=== PATIENT | male | born 1980 ===

== ENCOUNTER 2019-04-01 12:48 | Emergency (ER) | payer SELFPAY ==
--- OUTSIDE RECORDS SUMMARY | 2019-04-01 12:56 | XMS REPORT | Summary of Care ---
:1980 Author Organization [facility] Address [address] [place] [address] Care Team Providers Name Role Phone Michelle Ramos MD Primary Care Provider Reason for Referral Consultation (Routine) Status Reason Specialty Diagnoses / Referred By Referred To Procedures Contact Contact Open Specialty Dermatology Diagnoses Basal cell carcinoma (BCC) of skin of nose Burt Baum Farah, Ramsay Services MD S, MD Required [address] [facility] [address]nd [address], [address] [place] [address] Phone: Fax: Email: [phone] [email or web address] Consultation (STAT) Status Reason Specialty Diagnoses / Referred By Referred To Procedures Contact Contact Open Specialty Otolaryngology Diagnoses Basal cell carcinoma (BCC) of skin of nose Burt Baum, Celine Recinos MD, MD Required [address], [address] [address] [address] Phone: [place], [place] [phone] Fax: Email: [email or web address] Reason for Visit Reason Comments New Patient Consultation (Routine) Status Reason Specialty Diagnoses / Referred By Referred To Procedures Contact Contact Authorized Specialty Dermatology Diagnoses Basal cell carcinoma (BCC) of dorsum of nose Sarika Hogan Ramsay S, Services Prashant K, MD MD Required [address], [address] [place] [address] [place], [place] Phone: [phone] Phone: Email: Email: [email or web address] Encounter Details Date Type Department Care Team Description 02/13/2019 Office Visit [facility] Dermatology Jamin Hogan MD [address] [facility] [place] [address] [phone] Basal cell carcinoma at [facility], Burt Ngo MD [address], [address] [place] [phone] (BCC) of skin [facility] nose (Primary Dx) [address], [address] [place] [phone] Allergies Active Allergy Reactions Severity Noted Date Comments Amoxicillin Anaphylaxis High 05/12/2016 Penicillins 11/22/2015 documented as of this encounter (statuses as of 02/13/2019) Medications Medication Sig Dispensed Refills Start Date End Date Status lisinopril Take 10 mg by 1 05/01/2016 Active (PRINIVIL,ZESTRIL) mouth daily 10 MG tablet ibuprofen Take 200 mg by 0 Active (ADVIL,MOTRIN) 200 mouth every 6 MG (six) hours as tabletIndications: needed for Pain Mild to Moderate (pt states Pain 1000mg-1200mg at a time)Indications: Mild to Moderate Pain acetaminophen Take 500 mg by 0 Active (TYLENOL) 500 MG mouth every 6 tablet (six) hours as needed for Pain amLODIPine Besylate Take 10 mg by 0 04/21/2018 Active 10 MG Oral Tablet mouth daily (NORVASC) Benazepril-hydroCHLO TAKE TWO TABLETS 0 07/05/2018 Active ROthiazide 20-12.5 BY MOUTH EVERY MG Oral Tablet MORNING (LOTENSIN HCT) DISCONTINUE ENALAPRIL Doxycycline Take 100 mg by 0 12/08/2018 Active Monohydrate 100 MG mouth Two Times Oral Capsule Daily (MONODOX) Fluorouracil 5 % Apply to lesion on 40 g 1 02/13/2019 02/12/2020 Active External Cream genitals as well (EFUDEX) as to lesion in right groin bid documented as of this encounter (statuses as of 02/13/2019) Active Problems Problem Noted Date Morbid obesity due to excess calories 11/25/2015 Asthma documented as of this encounter (statuses as of 02/13/2019) Social History Tobacco Use Types Packs/Day Years Used Date Never Smoker 0 Smokeless Tobacco: Current User Alcohol Use Drinks/Week oz/Week Comments Yes 2-3 x a week, 3-6 drinks/time Sex Assigned at Date Recorded Not on file Job Start Date Occupation Industry Not on file Not on file Not on file Travel History Travel Start Travel End No recent travel history available. documented as of this encounter Last Filed Vital Signs Vital Sign Reading Time Taken Comments Blood Pressure - - Pulse - - Temperature 36.7 02/13/2019 9:11 AM EST C (98 F) Respiratory Rate - - Oxygen Saturation - - Inhaled Oxygen Concentration - - Weight 164.7 kg (363 lb) 02/13/2019 9:11 AM EST Height 182.9 cm (6' 0.01") 02/13/2019 9:11 AM EST Body Mass Index 49.22 02/13/2019 9:11 AM EST documented in this encounter Progress Notes Neil Santacruz MD - 02/13/2019 9:15 AM EST REASON FOR VISIT: The patient is here as a new patient for biopsy confirmed basal cell carcinoma. HISTORY OF PRESENTING ILLNESS: Yayo Garcia is a 38 y.o. year old male who presents with biopsy proven basal cell carcinoma. He has a past medical history of umbilical hernia, repaired in 2017, low back pain, hypertension, degenerative disk disease, asthma , arthritis, and morbid obesity, coming in post excision of the basal cell carcinoma at the dorsal nose, however, with some cancer remaining. He states that he has had this lesion for the past 1.5-2 years however, it has not bothered him significantly. He assumed it was a wart. States there was some itching. Denies erythema, bleeding, or flaking of tissue debris from site. Chief Complaints: Basal cell carcinoma Condyloma Location Right dorsum nose 1 lesion seen on distal shaft of penis, and similar lesion seen on right side of groin Duration 1.5-2 years Months previous Modifying Factors N/A N/A Signs & Symptoms Previously goldstein white lesion 0.6 x 0.6 x 0.1 Wartlike appearance, no change in color Previous Treatments Excision of the nodule with 0.4 cm depth None. Patient's medications, allergies, past medical, surgical, social and family histories were reviewed and updated as appropriate. Past surgical history includes finger surgery , wisdom teeth extraction and umbilical hernia repair 5 years ago with reduction in 2017. His family history includes cancer in his maternal grandmother and paternal grandmother, diabetes inhis mother, hyperlipidemia in his mother, hypertension in his father and mother. As per social history, he states that he has never smoked, he uses smokeless tobacco. He reports current alcohol use. He states that he does not use drugs. Current medication list includes amlodipine, benazepril, HCTZ, doxycyline, ibuprofen, acetaminophen, and lisinopril. Biopsy Report: Surgical Pathology Report Specimen(s) Received A: Nose lesion Clinical Diagnosis and History ICD 10 D48.5 Excision, stitch inferior at corner. Diagnosis SKIN, NOSE BASAL CELL CARCINOMA, FOCALLY EXTENDING TO 3:00 LATERAL AND DEEP MARGIN. Gross Description Specimen received in formalin labeled "nose lesion" is a 1.3 x 0.8 cm ellipse of pink-patterson skin excised to a maximum depth of 0.4 cm. There is a stitch on the longitudinal end indicating inferior corner. The stitch will be redesignated 12:00. Located centrally on the skin surface is a 0.6 x 0.6 x 0.1 cm circumscribed brunner-white nodular lesion. The lesion is located 0.1 cm from the nearest transverse margin. The 3:00 transverse margin is inked blue and the remaining margin black. The specimen is serially sectioned transversely and the 12 and 6:00 ends are cruciated. Sections are submitted for microscopic examination as designated: cassette 1 12:00 cruciate margin; cassette 2 transverse sections to include 3:00, 9:00 and deep margin; and cassette 3 6:00 cruciate margin. (3 blocks) arcadio rff/duran Techinical component processed at [facility], Histopathology, [address] [place] [address]. Diagnosis and reporting at [facility], [address] [place] [address] Reported: 01/02/2019 15:23 REVIEW OF SYSTEMS: Review of Systems Constitutional: Negative for chills, fever, malaise/fatigue and weight loss. HENT: Negative for hearing loss and tinnitus. Eyes: Negative for blurred vision, double vision and pain. Respiratory: Negative for cough and hemoptysis. Cardiovascular: Negative for chest pain, palpitations and orthopnea. Gastrointestinal: Negative for heartburn, nausea and vomiting. Genitourinary: Negative for dysuria and urgency. Musculoskeletal: Negative for myalgias and neck pain. Skin: Positive for itching. Neurological: Negative for dizziness, sensory change, focal weakness and headaches. PAST MEDICAL HISTORY: Past Medical History: Diagnosis Date Allergy, unspecified not elsewhere classified seasonal Arthritis Asthma DDD (degenerative disc disease), lumbosacral 2017 Hypertension Low back pain Umbilical hernia PAST SURGICAL HISTORY: Past Surgical History: Procedure Laterality Date FINGER SURGERY Ring finger left hand RI REPAIR UMBILICAL KIM,5+Y/O,REDUC N/A 06/24/2016 Procedure: OPEN UMBILICAL HERNIA REPAIR ; Surgeon: Nato Smith MD; Location: OR ; Service:General; Laterality: N/A; WISDOM TOOTH EXTRACTION ALLERGIES: Allergies Allergen Reactions Amoxil [Amoxicillin] Anaphylaxis Penicillins MEDICATIONS: Current Outpatient Medications on File Prior to Visit Medication Sig Dispense Refill amLODIPine Besylate 10 MG Oral Tablet (NORVASC) Take 10 mg by mouth daily Benazepril-hydroCHLOROthiazide 20-12.5 MG Oral Tablet (LOTENSIN HCT) TAKE TWO TABLETS BY MOUTH EVERY MORNING DISCONTINUE ENALAPRIL ibuprofen (ADVIL,MOTRIN) 200 MG tablet Take 200 mg by mouth every 6 (six ) hours as needed for Pain (pt states 1000mg-1200mg at a time)Indications: Mild to Moderate Pain acetaminophen (TYLENOL) 500 MG tablet Take 500 mg by mouth every 6 (six) hours as needed forPain Doxycycline Monohydrate 100 MG Oral Capsule (MONODOX) Take 100 mg by mouth Two Times Daily lisinopril (PRINIVIL,ZESTRIL) 10 MG tablet Take 10 mg by mouth daily 1 No current facility-administered medications on file prior to visit. FAMILY HISTORY: Melanoma: no Skin Cancer: No PHYSICAL EXAMINATION: Physical Exam Constitutional: Appearance: Normal appearance. He is obese. He is not toxic-appearing or diaphoretic. HENT: Head: Normocephalic and atraumatic. Right Ear: There is no impacted cerumen. Left Ear: There is no impacted cerumen. Mouth/Throat: Mouth: Mucous membranes are dry. Eyes: Extraocular Movements: Extraocular movements intact. Pupils: Pupils are equal, round, and reactive to light. Cardiovascular: Rate and Rhythm: Normal rate and regular rhythm. Heart sounds: No murmur. No friction rub. No gallop. Pulmonary: Effort: Pulmonary effort is normal. Breath sounds: Normal breath sounds. No stridor. No rhonchi. Abdominal: General: Bowel sounds are normal. There is distension. Palpations: Abdomen is soft. Tenderness: There is no abdominal tenderness. Genitourinary: Comments: Has a condyloma wart on the distal penile shaft. Similar in the right side of his groin. Musculoskeletal: General: No deformity or signs of injury. Skin: Findings: Lesion present. Comments: 1 cm scar located on anterior right side of the nose, post excision. Neurological: General: No focal deficit present. Mental Status: He is alert and oriented to person, place, and time. Psychiatric: Mood and Affect: Mood normal. Behavior: Behavior normal. Neck- Exam of scalp, hair, external ears, conjunctiva, eyelids, lips, face and neck. Normal except as noted; ASSESSMENT/PLAN Yayo Garcia is a 38 y.o. year old male who presents with biopsy proven basal cell carcinoma. He has a past medical history of umbilical hernia, repaired in 2017, low back pain, hypertension, degenerative disk disease, asthma , arthritis, and morbid obesity, coming in post excision of the basal cell carcinoma at the dorsal nose, however, with some cancer remaining. He states that he has had this lesion for the past 1.5-2 years however, it has not bothered him significantly. He assumed it was a wart. States there was some itching. Denies erythema, bleeding, or flaking of tissue debris from site. #Basal Cell Carcinoma Patient has basal cell carcinoma as confirmed by biopsy and as seen by report above. Resideual basalcell carcinoma persists, due to incomplete excision. Patient will require Moh's Surgery. We explained Moh's surgery, procedure and complications to the patient. Given size and location will need referral to ENT to repair. [facility] staff will contact patient. #Condyloma 1 lesion was seen on the distal shaft of the penis. A similar lesion is noted on the right side of the groin. Right groin mass be SK as well. Efudex cream is provided. 1. Basal cell carcinoma (BCC) of skin of nose Referral to ENT Referral to Dermatology documented in this encounter Plan of Treatment Name Type Priority Associated Order Schedule Diagnoses Referral to ENT Outpatient Referral STAT Basal Cell Ordered: Carcinoma (Bcc) Of 02/13/2019 Skin Of Nose Referral to Outpatient Referral Routine Basal Cell Ordered: Dermatology Carcinoma (Bcc) Of 02/13/2019 Skin Of Nose Health Maintenance Due Date Last Done Comments MMR Vaccines (1 of 1 - Standard 1979 series) Varicella Vaccines (1 of 2 - 1979 2-dose childhood series) Pneumococcal Vaccine: Pediatrics 1984 (0 to 5 Years) and At-Risk Patients (6 to 64 Years) (1 of 3 - PCV13) DTaP,Tdap,and Td Vaccines (1 - 1985 Tdap) HIV Screening 1991 Influenza Vaccine 12/06/2018 Pneumococcal Vaccine: 65+ Years (1 2043 of 2 - PCV13) HIB Vaccines Aged Out No longer eligible based on patient's age to complete this topic Hepatitis A Vaccines Aged Out No longer eligible based on patient's age to complete this topic Hepatitis B Vaccines Aged Out No longer eligible based on patient's age to complete this topic IPV Vaccines Aged Out No longer eligible based on patient's age to complete this topic documented as of this encounter Results Not on filedocumented in this encounter Visit Diagnoses Diagnosis Basal cell carcinoma (BCC) of skin of nose - Primary documented in this encounter
--- OUTSIDE RECORDS SUMMARY | 2019-04-01 12:56 | XMS REPORT | Continuity of Care Document ---
:1980 External Reference #:[id number] Author Name Campos Wiggins PA Address [address] [place] [address] Care Team Providers Name Role Phone [facility] Care Team Information Fire Control Officer Unavailable Gay Otoole NP - Family Care Team Information Fire Control Officer [phone] Problems Active Problems Provider Date Essential hypertension Campos Wiggins PA Onset: 01/26/2018 Hypertriglyceridemia Campos Wiggins PA Onset: 01/26/2018 Morbid obesity Campos Wiggins PA Onset: 01/26/2018 Family history of diabetes mellitus Campos Wiggins PA Onset: 01/26/2018 Hepatitis C screening Campos Wiggins PA Onset: 01/31/2018 Note: Neg -- 01/2018 Social History Type Date Description Comments Sex Unknown Tobacco Use Start: Unknown Never Smoked Cigarettes ETOH Use consumes 7 beers per week Tobacco Use Start: Unknown Patient has never smoked Smoking Status Reviewed: 03/09/19 Patient has never smoked Seat Belt/Car Seat sometimes uses seat belt Allergies, Adverse Reactions, Alerts Active Allergies Reaction Severity Comments Date Penicillin Swelling 11/04/2006 Medications Active Medications SIG Qnty Indications Ordering Date Provider Fluticasone 1 sprays in each 16gm H68.003 Michelle Ramos 03/09/2019 Propionate nostril twice MD Jennifer 50mcg/Act daily Suspension Saline Nasal [place] 1-2sprays as 44ml H68.003 Michelle Ramos 03/09/2019 needed congestion MD Jennifer 0.65% Solution Benazepril 2 by mouth every 180tabs I10 Michelle Ramos 06/29/2018 HCL/Hydrochlorothiaz in the morning MD Jennifer nidia [d/c enalapril] 20-12.5mg Tablets Amlodipine Besylate 1 by mouth every 90tabs I10 Michelle Ramos 2018 day MD Jennifer 10mg Tablets Tricor 1 po q day 90tabs E78.1 Michelle Ramos 03/09/2018 145mg Tablets MD Jennifer Taatr-1-Qdua Ethyl 2 po bid 180caps E78.1 Michelle Ramos 03/09/2018 Esters MD Jennifer 1gm Capsules History Medications Doxycycline 1 by mouth 42tabs M79.12 Michelle Ramos 12/08/2018 - Monohydrate twice a day MD Jennifer 12/29/2018 100mg for 21day Tablets Immunizations CPT Code Status Date Vaccine Lot # [id number] Given 03/29/2014 Tdap (Adacel) Ages 7 And Above Only [id number] Given 03/29/2014 Tdap (Adacel) Ages 7 And Above Only [id number] Refused 01/25/2018 Influenza Vac, Quadrivalent, Split, 0.5mL Dosage, Im Use [id number] Refused 01/07/2017 Influenza Vac, Quadrivalent, Split, 0.5mL Dosage, Im Use Vital Signs Date Vital Result Comment 03/09/2019 11:44am Body Temperature 99.5 F Weight 359.00 lb Heart Rate 96 /min BP Systolic 138 mmHg BP Diastolic 94 mmHg Height 72 inches 6'0" BMI (Body Mass Index) 48.7 kg/m2 01/04/2019 8:07am Weight 359.00 lb Heart Rate 87 /min BP Systolic 142 mmHg BP Diastolic 91 mmHg Height 72 inches 6'0" BMI (Body Mass Index) 48.7 kg/m2 Results Test Acquired Date Facility Test Result H/L Range Note Laboratory test 12/28/2018 [facility] SEE NOTE [facility] Laboratory [place] [address] Surgical Pathology Report Specimen(s) Received A: Nose [...] 3 6:00 cruciate margin. (3 blocks) arcadio rff/rce Techinical component processed at [facility], Histopathology, [address] [place] [id number]. Diagnosis and reporting at [facility], [address] [place] [address] Reported: 01/02/2019 15:23 Electronically Signed Out By Lizbeth Youngblood M.D. arcadio This report may include immunohistochemical or in-situ hybridization results. Testing was developed and the performance characteristics determined by [facility] as required by CLIA '88. The FDA has determined that approval for specific use is not necessary for clinical use. The quality of all stains including positive and negative controls for all immunohistochemical and/or special stains were reviewed and considered appropriate ICD9 Codes D48.5 CPT4 codes A: 92805O Type FS-HO Unless otherwise specified, testing performed by [facility] [employer], [address] [address] Procedures Date Code Description Status 12/28/2018 82318 Layer Closure Wound < 2.6CM Completed Face/Ear/Eyelid/Nose/Lip/Muc Mem 12/28/2018 47962 Excise Malig Lesion .6-1CM Face/Ear/Eyelid/Nose/Lip Completed Medical Devices Description No Information Available Encounters Type Date Location Provider Dx Diagnosis Office Visit 12/08/2018 1:00p Campos Kauffman PA M79.12 Myalgia of auxiliary muscles, head and neck D48.5 Neoplasm of uncertain behavior of skin E66.01 Morbid (severe) obesity due to excess calories Z68.42 Body mass index (BMI) 45.0-49.9, adult Assessments Date Code Description Provider 03/09/2019 H68.003 Unspecified Eustachian salpingitis, bilateral Campos Wiggins PA 03/09/2019 E66.01 Morbid (severe) obesity due to excess calories Campos Wiggins PA 03/09/2019 Z68.42 Body mass index (BMI) 45.0-49.9, adult Campos Wiggins PA 01/04/2019 C44.311 Basal cell carcinoma of skin of nose Campos Wiggins PA 01/04/2019 E66.01 Morbid (severe) obesity due to excess calories Campos Wiggins PA 01/04/2019 Z68.42 Body mass index (BMI) 45.0-49.9, adult Campos Wiggins PA 12/28/2018 D48.5 Neoplasm of uncertain behavior of skin Campos Wiggins PA 12/28/2018 E66.01 Morbid (severe) obesity due to excess calories Campos Wiggins PA 12/28/2018 C44.311 Basal cell carcinoma of skin of nose Campos Wiggins PA 12/28/2018 D48.5 Neoplasm of uncertain behavior of skin [facility] 12/28/2018 Z68.42 Body mass index (BMI) 45.0-49.9, adult Campos Wiggins PA 12/08/2018 M79.12 Myalgia of auxiliary muscles, head and neck Campos Wiggins PA 12/08/2018 D48.5 Neoplasm of uncertain behavior of skin Campos Wiggins PA 12/08/2018 E66.01 Morbid (severe) obesity due to excess calories Campos Wiggins PA 12/08/2018 Z68.42 Body mass index (BMI) 45.0-49.9, adult Campos Wiggins PA Plan of Treatment 03/09/2019 - Campos Wiggins PAH68.003 Unspecified Eustachian salpingitis, bilateralNew Medication:Fluticasone Propionate 50 mcg/Act - 1 sprays in each nostril twice dailySaline Nasal [place] 0.65 % - 1-2sprays as needed congestionComments:rx nasal spray and OTC meds for s/s. no decongestant with HTN.E66.01 Morbid (severe) obesity due to excess hxwxqaxpD12.42 Body mass index (BMI) 45.0-49.9, adult Functional Status Description No Information Available Mental Status Description No Information Available Referrals Refer to Reason for Referral Status Appt Date Jamin Hogan BCC nose with positive deep and lateral margins Closed 01/20/201901/09-PER ALFRED PT IS SCHEDULED AND AWARE-[address], [place] [phone]
--- OUTSIDE RECORDS SUMMARY | 2019-04-01 12:56 | XMS REPORT | Summary of Care ---
:1980 Author Organization [facility] Address [address] [place] [address] Care Team Providers Name Role Phone Michelle Ramos MD Primary Care Provider Reason for Visit Reason Comments Procedure excision of BCC on nose Encounter Details Date Type Department Care Team Description 2019 Procedure visit Breast Care, [place], Basal cell carcinoma Endocrine and Jamin Madrigal MD (BCC) of dorsum of Plastic Surgery [address] [facility] (Primary Dx[facility] [address] [place] [address] Donny D [phone] [place] [address] Allergies Active Allergy Reactions Severity Noted Date Comments Amoxicillin Anaphylaxis High 05/12/2016 Penicillins 11/22/2015 documented as of this encounter (statuses as of 2019) Medications Medication Sig Dispensed Refills Start Date [...] as to lesion in right groin bid Additional information Patient not taking. Reported on 2019 10:02 AM Fenofibrate 48 MG Oral Tablet (TRICOR) Take 145 mg by mouth daily 0 Active documented as of this encounter (statuses as of 2019) Active Problems Problem Noted Date Morbid obesity due to excess calories 11/25/2015 Asthma documented as of this encounter (statuses as of 2019) Social History Tobacco Use Types Packs/Day Years [...] Sign Reading Time Taken Comments Blood Pressure 138/83 2019 9:59 AM EST Pulse 90 2019 9:59 AM EST Temperature 36.5 2019 9:59 AM EST C (97.7 F) Respiratory Rate - - Oxygen Saturation - - Inhaled Oxygen Concentration - - Weight 161.9 kg (357 lb) 2019 9:59 AM EST Height 182.9 cm (6') 2019 9:59 AM EST Body Mass Index 48.42 2019 9:59 AM EST documented in this encounter Progress Notes Jamin Hogan MD - 2019 10:00 AM ESTPatient has a ill defined BCC dorsum of nose. I had sent him for Moh's procedure. Unfortunately, hisinsurance is not accepted by the area Moh's dermatologists. There has already been a fair amount of delay. My plan is to do a wide local excision and leave the wound open for now. Once I have confirmed negative margins, I will attempt to close the wound with a full thickness skin graft or leave the wound to heal by secondary intention, per the patient wishes. Procedure note: Preop Dx: Dorsum of nose BCC Post op Dx:same Procedure:Wide local excision Findings: 1 x 1.5 cm defect, including 2 mm of margin Anesthesia: 2 cc of Lidocaine 1% with epinephrine. Procedure: Consent was taken. Timeout was performed. Area was prepped with betadine. Anesthesia was injected around the planned incision. Adequate numbing was confirmed. An incision was made around the lesion and deepened down. The incision was deepened down to the subcutaneous tissue. The lesion was shaved off. Pressure and silver nitrate was used to achieve hemostasis. Bacitracin and a pressure dressing was applied. Patient tolerated the procedure well. Sharps were appropriately disposed off from the instrument tray. documented in this encounter Plan of Treatment Date Type Specialty Care Team Description 03/31/2019 Procedure visit Breast Surgery Jamin Hogan MD [address] [place] [address] [phone] Health Maintenance Due Date Last Done Comments [...] Diagnoses Diagnosis Basal cell carcinoma (BCC) of dorsum of nose - Primary documented in this encounter
--- OUTSIDE RECORDS SUMMARY | 2019-04-01 12:56 | XMS REPORT | Summary of Care ---
:1980 Author Organization [facility] Address [address] [place] [address] Care Team Providers Name Role Phone Michelle Ramos MD Primary Care Provider Reason for Visit Reason Comments Follow-up Nose BCC Encounter Details Date Type Department Care Team Description 03/31/2019 Procedure visit Breast Care, [place], Basal cell carcinoma Endocrine and Jamin Madrigal MD (BCC) of [facility] [address] [facility] ([facility] [address] [place] [address] Donny D [phone] [place] [address] Allergies Active Allergy Reactions Severity Noted Date Comments Amoxicillin Anaphylaxis High 05/12/2016 Penicillins 11/22/2015 documented as of this encounter (statuses as of 03/31/2019) Medications Medication Sig Dispensed Refills Start End Date Status Date lisinopril Take 10 mg by 1 Active (PRINIVIL,ZESTRIL) mouth daily 7 10 MG tablet ibuprofen Take 200 mg by 0 Active (ADVIL,MOTRIN) 200 mouth every 6 MG (six) hours as tabletIndications: needed for Pain Mild to Moderate (pt states Pain 1000mg-1200mg at a time)Indications : Mild to Moderate Pain acetaminophen Take 500 mg by 0 Active (TYLENOL) 500 MG mouth every 6 tablet (six) hours as needed for Pain amLODIPine Take 10 mg by 0 Active Besylate 10 MG mouth daily 9 Oral Tablet (NORVASC) Benazepril-hydroCH TAKE TWO TABLETS 0 Active LOROthiazide BY MOUTH EVERY 9 20-12.5 MG Oral MORNING Tablet (LOTENSIN DISCONTINUE HCT) ENALAPRIL Fluorouracil 5 % Apply to lesion 40 g 1 12/09/201 12/07/20 Active External Cream on genitals as 11 25 (EFUDEX) well as to lesion in right groin bid Fenofibrate 48 MG Take 145 mg by 0 Active Oral Tablet mouth daily (TRICOR) Doxycycline Take 100 mg by 0 03/31/19 Discontinued Monohydrate 100 MG mouth Two Times 11 25 (Therapy Oral Capsule Daily completed) (MONODOX) documented as of this encounter (statuses as of 03/31/2019) Active Problems Problem Noted Date Morbid obesity due to excess calories 11/25/2015 Asthma documented as of this encounter (statuses as of 03/31/2019) Social History Tobacco Use Types Packs/Day Years [...] Sign Reading Time Taken Comments Blood Pressure 152/108 03/31/2019 12:16 PM EST Pulse 84 03/31/2019 12:16 PM EST Temperature 37.1 03/31/2019 12:16 PM EST C (98.7 F) Respiratory Rate - - Oxygen Saturation 95% 03/31/2019 12:16 PM EST Inhaled Oxygen Concentration - - Weight 158.3 kg (349 lb) 03/31/2019 12:16 PM EST Height 182.9 cm (6') 03/31/2019 12:16 PM EST Body Mass Index 47.33 03/31/2019 12:16 PM EST documented in this encounter Progress Notes Jamin Hogan MD - 03/31/2019 12:30 PM ESTHe is s/p wide local excision of nasal BCC last week. The pathology was negative for any residual disease. At this time, I offered him the choice of undergoing full thickness skin graft to the nose vs letting the wound heal by secondary intention. He understands that the wound will continue to shrink and hecan come back for a full thickness skin graft procedure anytime if he wants to go ahead. He chose the latter option for now. documented in this encounter Plan of Treatment Health Maintenance Due Date Last Done Comments [...]
[2019-04-01] MEDS ORDERED: Gelfoam 12-7 ADSORBABL SPONGE* 1 EA SPONGE TOPICAL ONE (13:02)
--- NOTE | 2019-04-01 13:06 | UC ---
Epistaxis Nasal HPI - HPI Summary HPI Summary: CHIEF COMPLAINT and HPI: This is a 39-year-old white male who comes to the urgent care center with significant bleeding from a lesion on the right side of his nose. In December. The patient had a cancerous lesion removed from the right side of his nose. 8 days ago he had a revision to remove the borders of this lesion. It was cauterized with silver nitrate. At that time. It has not bled until 1 hour ago when it started spurting blood. There is no pain, no shortness of breath, and dizziness. Patient is not in pain. VITAL SIGNS & SaO2 REVIEWED. Within normal limits unless noted here. NURSES NOTE REVIEWED. - History of Current Complaint Stated Complaint: NOSE BLEED Time Seen by Provider: 04/01/19 13:00 Hx Obtained From: Patient - Allergies/Home Medications Home Medications: Home Medications Fenofibrate Nanocrystallized [Tricor] 48 mg PO DAILY WITH MEAL 04/01/19 [ History Confirmed 04/01/19] hydroCHLOROthiazide [Hydrochlorothiazide] 12.5 mg PO DAILY WITH MEAL 04/01/19 [ History Confirmed 04/01/19] lisinopriL [Lisinopril] 10 mg PO DAILY WITH MEAL 04/01/19 [History Confirmed ] PMH/Surg Hx/FS Hx/Imm Hx Previously Healthy: Yes Cardiovascular History: Hypertension Cancer History: Other - skin of nose - Surgical History Surgical History: Yes - Removal of skin cancer from the right side of the nose in December 2018. 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 Review of Systems All Other Systems Reviewed And Are Negative: Yes Constitutional: Positive: Negative ENT: Positive: Other - Bleeding from the outside of the nose on the right Respiratory: Positive: Negative Cardiovascular: Positive: Negative Gastrointestinal: Positive: Negative Is Patient Immunocompromised?: No Physical Exam - Summary Physical Exam Summary: Appearance: The patient is well-appearing, and is well-nourished. There is a spurting wound site on the right side of the nose approximately where the nasal bone ends. The bleeding can be controlled with direct pressure. The lesion is approximately 1.5 cm in diameter and is the site of removal of a skin cancer. Eyes: Conjunctiva are clear. Pupils are equal and reactive to light and accommodation. Extra ocular muscle movement is intact. ENT: The hearing is grossly normal, the pharynx is normal, and the TMs are normal. There is no muffled or hoarse voice. No stridor. Neck: The neck is supple and there is no lymphadenopathy. Respiratory: The chest is non-tender to palpation and without crepitus. The lungs are clear, there are normal breath sounds, and there is no respiratory distress. No wheezes, rales or rhonchi. Cardiovascular: Heart sounds reveal a regular rate and rhythm. There are no clicks, rubs or murmurs. There are no carotid bruits or thrills. Circulation is grossly intact. Abdomen: The abdomen is soft and nontender. There is no organomegaly. Bowel sounds are present and within normal limits. No point tenderness at McBurneys point. No CVA tenderness. Musculoskeletal: Strength is intact. The patient moves all extremities. Neurological: The patient is alert. Motor and sensory are examination grossly intact. Speech is normal. Psychological: The patient displays age appropriate behavior, and is conversant. GCS=15. Skin: Negative for rashes. Procedure: Control of the skin bleeding, right side of the nose. The bleeding from the surgical site was controlled with direct pressure. Use of approximately 7 silver nitrate cautery sticks was required to cauterize the wound. Gelfoam was then placed and direct pressure again applied. Bleeding was controlled. A pressure dressing was placed. The patient was instructed to follow-up with his surgeon on Wednesday. Triage Information Reviewed: Yes Vital Signs Reviewed: Yes Epistaxis Nasal Course/Dx - Course Course Of Treatment: 39-year-old with significant arterial bleeding from the skin of the right side of his nose, status post excision of a cancerous lesion in December, with a revision 8 days ago. Bleeding began approximately one hour prior to coming to the urgent care center. It was severe. Procedure control the leading with direct pressure and multiple cauterizations with silver nitrate. Gelfoam was placed and a pressure dressing was placed. Patient was instructed to put direct pressure on the area. Should the bleeding resume. He will follow-up with his physician in 2 days. He will go to the emergency Department if bleeding recurs and he cannot control. - Differential Dx/Diagnosis Differential Diagnosis/HQI/PQRI: Other - Hemorrhage from a surgical excision site Provider Diagnosis: Bleeding Discharge ED - Sign-Out/Discharge Documenting (check all that apply): Patient Departure All imaging exams completed and their final reports reviewed: No Studies - Discharge Plan Condition: Stable Disposition: HOME Patient Education Materials: Nosebleed (ED) Referrals: Ivan Ngo MD [Primary Care Provider] - Additional Instructions: WE DISCUSSED: PLEASE SEEK CARE AT THE EMERGENCY DEPARTMENT IF SYMPTOMS WORSEN OR IF NEW SYMPTOMS DEVELOP including shortness of breath or dizziness. FOLLOW UP WITH YOUR surgeon in 2 days. YOUR DIAGNOSIS IS: bleeding from surgical site on the right side of your nose. YOUR PRESCRIPTION RECOMMENDATION IS: None OTHER INSTRUCTIONS: Put direct pressure on the area if the bleeding should recur. Go to the emergency department if you cannot control the bleeding. Hypertension Discharge Instructions: Your blood pressure reading today was 177/94, indicating HYPERTENSION. Follow- up with your primary care for appropriate recommendations and treatment, as needed. FOR PAIN AND/OR SLEEP: For pain: Ibuprofen (Motrin and other brand names) 400-600mg PLUS acetaminophen (Tylenol and other brand names) 500mg - 1000mg every 8 hours. - Billing Disposition and Condition Condition: STABLE Disposition: Home
[2019-04-01] MEDS ORDERED: Silver Nitrate/Potassium Nitr* 1 PAK (1 PAK PER PATIENT) TOPICAL ONE (13:08)
[2019-04-01] MEDS ORDERED: Benzoin Compound STICK TOPICAL ONE (14:10)
== END 2019-04-01 14:25 | disposition home or self-care (01) ==
LOC: UCEAST 12:48
DX: R04.0 Epistaxis (principal); I10 Essential (primary) hypertension; Z79.899 Other long term (current) drug therapy
CPT/HCPCS: 99204; A9270-GY; G0463